=== PATIENT | male | born 1985 | race Caucasian/White ===

== ENCOUNTER 2016-11-01 23:55 | Emergency (ER) | payer MEDICAID ==
[2016-11-02 00:34] LABS: ANION GAP 22 mEq/L (8-16); CALCIUM 9.7 mg/dL (8.5-10.4); CARBON DIOXIDE 18 mEq/l (22-31); CHLORIDE 100 mEq/L (97-110); CREATININE 0.6 mg/dL (0.7-1.3); GLOMERULAR FILTRATION RATE > 60; GLUCOSE 100 mg/dL (70-100); POTASSIUM 3.7 mEq/L (3.5-5.2); SODIUM 140 mEq/L (134-144)
[2016-11-02 00:49] LABS: ETHANOL SERUM 320 mg/dL (0-10)
[2016-11-02 00:51] LABS: ABSOLUTE IMMATURE GRANULOCYTES 0.15 10^3/uL (0.00-0.10); ADD DIFF? NO; ADD MORPH? NO; ADD SCAN? NO; ATYPICAL LYMPHOCYTE FLAG 0 (0-99); FRAGMENT RBC FLAG 0 (0-99); HEMATOCRIT 43.6 % (40.0-51.0); HEMOGLOBIN 15.3 g/dL (13.7-17.5); LEFT SHIFT FLG 10 (0-99); LIPEMIA HEMOLYSIS FLAG 90 (0-99); MEAN CELL HEMOGLOBIN 33.6 pg (27.9-34.1); MEAN CELL HEMOGLOBIN CONCENTR. 35.1 g/dL (32.4-36.7); MEAN CELL VOLUME 95.6 fL (81.5-99.8); MEAN PLATELET VOLUME 10.7 fL (8.7-11.7); PLATELET CLUMPS FLAG 0 (0-99); PLATELET COUNT 135 10^3/uL (150-400); RED BLOOD CELL COUNT 4.56 10^6/uL (4.40-6.38); RED CELL DISTRIBUTION WIDTH 13.1 % (11.5-15.2)
--- NOTE | 2016-11-02 06:12 | EDPHY ---
H & P Stated Complaint: M1 hold Source: Patient, Police, EMS Exam Limitations: Intoxication - Personal History Current Tetanus/Diphtheria Vaccine: Unsure Current Tetanus Diphtheria and Acellular Pertussis (TDAP): Unsure - Medical/Surgical History Hx Asthma: Yes Hx Chronic Respiratory Disease: No Hx Diabetes: No Hx Cardiac Disease: No Hx Renal Disease: No Hx Cirrhosis: No Hx Alcoholism: Yes Hx HIV/AIDS: No Hx Splenectomy or Spleen Trauma: No Other PMH: PMH:alcoholism, anxiety. PSH:dental - Social History Smoking Status: Heavy smoker Time Seen by Provider: 11/01/16 23:58 HPI/ROS: HPI The patient presents on an M1 hold for grave disability. Apparently, the patient has called the police several times today about intruders on his property. 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 He then noticed people in blue shirt in his house and then said that there were people from a drug cartell making threats to him. He denies any SI or HI. Denies any drug use. He has been drinking alcohol. He says primary care doctor recently Dr. Bronson for a cough she was having. 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 REVIEW OF SYSTEMS Constitutional: No fever, no chills. Eyes: No discharge. ENT: No sore throat. Cardiovascular: No chest pain, no palpitations. Respiratory: No cough, no shortness of breath. Gastrointestinal: No abdominal pain, no vomiting. Genitourinary: No hematuria. Musculoskeletal: No back pain. Skin: No rashes. Neurological: No headache. PMHx: Some history of PTSD Soc Hx: Lives with roommates, reports alcohol use PHYSICAL General Appearance: Alert, no distress Head: He has alexx orbital ecchymoses to his right eye with small subconjunctival hemorrhage, he has 2 lacerations to his forehead Eyes: Pupils equal and round no pallor or injection ENT, Mouth: Mucous membranes moist Respiratory: There are no retractions, lungs are clear to auscultation Cardiovascular: Regular rate and rhythm Gastrointestinal: Abdomen is soft and non-tender, no masses, bowel sounds normal Neurological: A&O, moves all extremities Skin: Warm and dry, no rashes Musculoskeletal: Neck is supple non tender Extremities: symmetrical, full range of motion Psychiatric: Patient is oriented X 3, there is no agitation (Marie Mathews) Constitutional: Initial Vital Signs Temperature (C) 36.6 C 11/02/16 00:00 Heart Rate 109 H 11/02/16 00:00 Respiratory Rate 16 11/02/16 00:00 Blood Pressure 101/67 11/02/16 00:00 O2 Sat (%) 96 11/02/16 00:00 O2 Delivery Mode Room Air Allergies/Adverse Reactions: Penicillins Allergy (Verified 11/02/16 00:02) Home Medications: Medication Instructions Recorded Clindamycin 150 mg PO Q6 7 Days cap 07/24/15 Terbinafine HCl [Lamisil At] 30 gm TP BID #1 tube 07/24/15 Medical Decision Making - Diagnostics Imaging: Discussed imaging studies w/ call centre supervisor Radiologist, I viewed and interpreted images myself - Diagnostics Imaging Results: CT scan of head shows no intracranial hemorrhage, discussed with Dr. Barba. (Marie Mathews) Differential Diagnosis: This is a 30-year-old male with history of PTSD, alcohol use who presents on a mental health hold for grave disability. He has called police several times today for what sound to be paranoid delusions that people are breaking into to his home and harassing him. He has no prior similar psychiatric history. On exam, he is somewhat disheveled with delusions. He does have evidence of head injury. Differential diagnosis includes psychosis related to underlying psychiatric disease, drug intoxication, alcohol intoxication, intracranial hemorrhage. In the emergency department, basic labs were checked and were unremarkable except for elevated alcohol level of 320. This was repeated and was 180 later in the morning. CT scan of head was unremarkable for any acute bleed. At 6:30 a.m., the case will be signed out to the oncoming provider Dr. Perez pending mental health evaluation in the patient's sobriety. (Marie Mathews) Other Provider: Care assumed at 6:30 a.m. by myself from Dr. Mathews, patient is on a mental health hold and plan for psychiatric evaluation when clinically sober. 1425: Patient had psychiatric evaluation and is the recommendation of the air cargo specialist supervisor in the erp implementation consultant psychiatrist Dr. SILVIA Rothman that I vacated the mental health hold and discharge the patient. He is not currently psychotic or homicidal or suicidal. Does not meet criteria for emergent mental health hospitalization. (Bang Perez) - Data Points Laboratory Results: Laboratory Results 11/02/16 00:16 11/02/16 00:16 Departure - Departure Disposition: Home, Routine, Self-Care Clinical Impression: Alcohol intoxication Qualifiers: Complication of substance-induced condition: with delirium Qualified Code(s): F10.921 - Alcohol use, unspecified with intoxication delirium Periorbital ecchymosis of right eye Qualifiers: Encounter type: initial encounter Qualified Code(s): S00.11XA - Contusion of right eyelid and periocular area, initial encounter Condition: Good Instructions: Head Injury (ED), Alcohol Intoxication (ED) Referrals: Christina Bronson MD [Primary Care Provider] - As per Instructions
[2016-11-02 13:02] VITALS: O2SAT 94
[2016-11-02 15:42] VITALS: BP 135/65; PULSE 85; RESP 18; TEMP 97.5
== END 2016-11-02 15:37 | disposition home or self-care (01) ==
DX: S00.11XA Contusion of right eyelid and periocular area, initial encounter (principal); F10.921 Alcohol use, unspecified with intoxication delirium; J45.909 Unspecified asthma, uncomplicated; F17.200 Nicotine dependence, unspecified, uncomplicated; F79 Unspecified intellectual disabilities; W22.03XA Walked into furniture, initial encounter
CPT/HCPCS: 80305; G0480